=== PATIENT | female | born 1990 | race Caucasian/White ===

== ENCOUNTER 2018-04-26 17:22 | Inpatient (IN) | payer OTHER ==
[2018-04-26 18:21] VITALS: BMI 30.5
--- NOTE | 2018-04-26 19:05 | PDOC.LDHP ---
Labor and Delivery H&P Chief complaint: loss of fluid HPI: Seen at 1900: Patient of Dr Leigh, here for possible SROM at 40 weeks. The patient is a 28 yo with 2 prior SVDs here for leakage of fluid since this PM...first tesfaye=timmy followed by a gusmartin. Good FM, no fevers reported, no HAs. 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 No Neurological issues. About 2 weeks ago she had a possible absence sz vs vagal episode but not worked up. (HX sounds more like absence). Review of Systems: complete ROS done and otherwise negative as per HPI Current gestational age (weeks): 40 Due date: 04/26/18 Grav: 4 Para: 2 OB History Details: x2, past epidural use without issues Current complications: none Abnormal US findings: No Current medications: pre-heraclio vitamins Previous surgical history: none Allergies/Adverse Reactions: Allergies Allergy/AdvReac Type Severity Reaction Status Date / Time Sulfa (Sulfonamide Allergy Verified 09/08/15 16:57 Antibiotics) sour cream Allergy Uncoded 09/08/15 17:34 Social history: none - Physical Exam Vital signs reviewed and normal: yes Abnormal vital signs: TMax 99 General: NAD Heart: RRR Lungs: CTAB Abdomen: gravid Extremeties: no edema FHT: category 1 [place] contractions every: irregular and few - Vaginal Exam cm dilated: 1 (posterior cervix. Sterile speculum exam performed y me and grossly ruptured clear fluid pooling in posterior vag wall) Effacement: 25% Station: -1 - Assessment L&D Assessment: term rupture in membranes (PROM) - Plan Plan: admit to L&D, labor augmentation if indicated (I have discussed admit with Dr Leigh. I will order cytotec PV for ripening as cx thick and posterior. Presentation cephalic by keith.), informed consent obtained, anesthesia consult for pain management
[2018-04-26] MEDS ORDERED: Ibuprofen 800 MG TAB PO PRN (19:08)
[2018-04-26] MEDS ORDERED: Promethazine HCl 25 MG/ML VIAL IM PRN ×2 (19:08→22:21)
[2018-04-26] MEDS ORDERED: HYDROcodone/Acetaminophen 5/325 mg Tablet PO PRN ×2 (19:08)
[2018-04-26] MEDS ORDERED: Lidocaine 1% (PF) 30 ML VIAL SC PRN (19:08)
[2018-04-26] MEDS ORDERED: NS / Oxytocin 40 units/1000ml 1,000 ML IV PRN (19:08)
[2018-04-26] MEDS ORDERED: Butorphanol Tartrate 1 MG/ML VIAL SLOW IVP PRN (19:08)
[2018-04-26] MEDS: Lactated Ringer's 1,000 ML IV SCH ×2 (20:00→22:00)
[2018-04-26 20:07] LABS: Hemoglobin 12.4 g/dL (12.0-16.0); Mean Corpuscular HGB CONC 35.3 g/dL (32.0-36.0); Mean Corpuscular Volume 93.7 fL (78.0-98.0); Mean Platelet Volume 9.2 fL (7.4-10.4); Platelet Count 197 thou/uL (130-400); RBC Distribution Width 11.5 % (11.5-14.5); Red Blood Cell (RBC) Count 3.74 mill/uL (4.20-5.40)
[2018-04-26] MEDS ORDERED: Bupivacaine 0.75% 13.4 ML, fentaNYL Citrate/PF 400 MCG in Sodium Chloride 0.9% 78.6 ML EPIDURAL SCH (20:30)
[2018-04-26] MEDS ORDERED: DISCONTINUE ALL PREVIOUS NARCOTICS FS SCH (20:30)
[2018-04-26 20:44] LABS: Syphilis Antibody Nonreactive (Nonreactive); Syphilis Antibody Index 0.07 S/CO (<1.00 Non-Reactive)
[2018-04-26] MEDS ORDERED: Ondansetron HCl/PF 4 MG/2 ML Vial IVP PRN (22:21)
[2018-04-26] MEDS ORDERED: Eucerin (Mineral Oil/Petrolatum,White) 30 gm Jar TOP PRN (22:21)
[2018-04-26] MEDS ORDERED: Acetaminophen 325 MG TAB PO PRN (22:21)
[2018-04-26] MEDS ORDERED: ePHEDrine/0.9% NaCl/PF SYRINGE 50 mg/10 ml SLOW IVP PRN (22:21)
[2018-04-26] MEDS ORDERED: Lactated Ringer's 500 ML IV PRN (22:21)
[2018-04-26] MEDS ORDERED: Naloxone HCl 0.4 mg/ml Vial IVP PRN ×2 (22:21)
[2018-04-26] MEDS ORDERED: diphenhydrAMINE 50 MG/ML VIAL IVP PRN (22:21)
[2018-04-26] MEDS ORDERED: Communication Order-Pharmacy FS SCH (22:30)
[2018-04-26] MEDS ORDERED: Fentanyl 4mcg/Marcaine 0.1% Cassette 100 ML EPIDURAL SCH (22:30)
[2018-04-26 23:41] LABS: HBSAg Index 0.14 S/CO (0-0.99); HIV (1/2) Antibody/Antigen Non-Reactive (NonReactive); HIV 1/2 INDEX 0.08 S/CO (<1.00); Hep B Surf Ag Non-Reactive S/CO (NonReactive)
[2018-04-27] MEDS: Lactated Ringer's 1,000 ML IV SCH ×2 (00:09→03:34)
[2018-04-27] MEDS ORDERED: NS / Oxytocin 40 units/1000ml 1,000 ML ONE (03:28)
[2018-04-27] MEDS: Misoprostol 100 MCG TAB VAG SCH ×3 (03:34→07:35)
--- NOTE | 2018-04-27 04:41 | PDOC.OPDEL ---
OB Operative/Delivery Note Delivery Dr/Surgeon: Reese Pre-Delivery Diagnosis: active labor Procedure/Post Delivery Dx: spontaneous vaginal delivery Weeks gestation: 40 Anesthesia: epidural - Findings A Sex: female - 1 min: 9 - 5 min: 9 - Additional Findings/Plan Placenta delivered: spontaneous Post delivery plan: routine recovery
[2018-04-27] MEDS ORDERED: Measles/Mumps/Rubella 10 MCG/0.5 ML VIAL SC ONE (08:11)
[2018-04-27] MEDS ORDERED: Adacel (T-DAP) 0.5 ML VIAL IM ONE (08:11)
[2018-04-27] MEDS ORDERED: NS / Oxytocin 40 units/1000ml 1,000 ML IV SCH (08:11)
[2018-04-27] MEDS ORDERED: Lanolin Ointment 7 GM TUBE TOP PRN (08:11)
[2018-04-27] MEDS ORDERED: Bisacodyl 10 MG SUPP PR PRN (08:11)
[2018-04-27] MEDS ORDERED: Ondansetron HCl/PF 4 MG/2 ML Vial IVP PRN (08:11)
[2018-04-27] MEDS ORDERED: Acetaminophen/Codeine 30-300mg Tablet PO PRN (08:11)
[2018-04-27] MEDS ORDERED: Milk Of Magnesia 30 ML UDCUP PO PRN (08:11)
[2018-04-27] MEDS ORDERED: diphenhydrAMINE 25 MG CAP PO PRN (08:11)
[2018-04-27] MEDS ORDERED: Benzocaine/Menthol 20-0.5% 60 ML CAN TOP PRN (08:11)
[2018-04-27] MEDS: Docusate Calcium (SURFAK) 240 MG CAP PO SCH ×2 (09:12→23:43)
[2018-04-27] MEDS: Prenatal Vitamin 1 TAB PO SCH (09:12)
[2018-04-27] MEDS: Ibuprofen 800 MG TAB PO SCH ×2 (11:17→19:14)
[2018-04-27] MEDS ORDERED: Lidocaine 2% MPF 10 ML AMP (For Epidural Use) ONE (14:54)
[2018-04-27] MEDS ORDERED: Bupivacaine/Epinephrine 0.25% 30 ML VIAL ONE (14:54)
[2018-04-27] MEDS ORDERED: ePHEDrine/0.9% NaCl/PF SYRINGE 50 mg/10 ml ONE (14:54)
[2018-04-27] MEDS: Acetaminophen/Codeine 30-300mg Tablet PO PRN (23:42)
[2018-04-28] MEDS: Ibuprofen 800 MG TAB PO SCH (06:23)
[2018-04-28] MEDS: Ferrous Sulfate 325 MG TAB PO SCH ×2 (07:35→10:15)
[2018-04-28] MEDS: Acetaminophen/Codeine 30-300mg Tablet PO PRN (08:02)
[2018-04-28] MEDS: Docusate Calcium (SURFAK) 240 MG CAP PO SCH (08:02)
[2018-04-28] MEDS: Prenatal Vitamin 1 TAB PO SCH (08:02)
--- NOTE | 2018-04-28 08:02 | PDOC.PP ---
Post Progress Note Post Day #: 1 Subjective: nursing well, very sore feeling, no fever/chills, min lochia PO intake tolerated: yes Flatus: yes Ambulation: yes Vital Signs (12 hours) Temp Pulse Resp BP 04/28/18 04:00 98.5 F 63 18 04/28/18 00:00 98.5 F 63 18 04/27/18 21:00 98.5 F 63 18 106/55 L Weight Weight 195 lb - Physical Examination General: NAD Respiratory: non-labored breathing Abdominal: no distention Fundus firm & at: below umb Extremities: negative homans (B) Neurological: no gross focal deficits Psychiatric: A&Ox3, normal affect Result Diagrams: 04/26/18 19:49 Additional Labs: Post Labs Blood Type A POSITIVE 04/26/18 19:49 Hep Bs Antigen Non-Reactive S/CO (NonReactive) 04/26/18 19:50 (1) 40 weeks gestation of Code(s): Z3A.40 - 40 WEEKS GESTATION OF Status: Acute (2) Vaginal delivery Code(s): O80 - ENCOUNTER FOR FULL-TERM UNCOMPLICATED DELIVERY Status: Acute - Assessment/Plan PPD1 sp , likely DC home today if baby DC.
[2018-04-28 08:13] VITALS: BP 125/62; TEMP 97.8
== END 2018-04-28 12:50 | disposition home or self-care (01) | DRG 775 ==
LOC: L&D/OP 17:22 → L&D 23:00 → 3SW 04-27 08:02
PROVIDERS: ADMIT Obstetrics & Gynecology; ATTEND Obstetrics & Gynecology
PROC: 10E0XZZ Delivery of Products of Conception, External Approach (ICD-10-PCS; principal; 2018-04-27)
DX: O48.0 Post-term pregnancy (principal); O99.354 Diseases of the nervous system complicating childbirth; Z3A.40 40 weeks gestation of pregnancy; Z37.0 Single live birth; G40.909 Epilepsy, unspecified, not intractable, without status epilepticus; O42.913 Preterm premature rupture of membranes, unspecified as to length of time between rupture and onset of labor, third trimester
CPT/HCPCS: 36415; 51702; 85027; 86780; 86850; 86900; 86901; 87340; 87389; 99285; J2001; J2405; J3010; J7050